=== PATIENT | male | born 1990 | race American Indian/Alaskan Native ===

== ENCOUNTER 2017-02-23 19:59 | Emergency (ER) | payer OTHER ==
[2017-02-23] MEDS ORDERED: Diphtheria,Pertussis(Acell),Tetanus Vaccine 0.5 ML SDV IM ONE (20:18)
[2017-02-23] MEDS ORDERED: Acetaminophen/HYDROcodone 325-5 MG Tab PO ONE (20:18)
--- NOTE | 2017-02-23 20:24 | EDM.PDOC ---
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 He states that his fingernail got bent backwards, and the skin on his finger pad was peeled off. He states that he is otherwise uninjured. The patient does not recall when his last tetanus vaccination was. The patient does not have a PCP. 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 Social & Family History - Tobacco Use Smoking Status *Q: Never Smoker Second Hand Smoke Exposure: No - Caffeine Use Caffeine Use: Reports: Coffee, Soda - Alcohol Use Alcohol Use History: Yes Alcohol Use Frequency: Socially - Recreational Drug Use Recreational Drug Use: No - Living Situation & Occupation Living situation: Reports: Single, Other (with friends) 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[employer]) Review of Systems - Review of Systems Review Of Systems: See Below Constitutional: Reports: No Symptoms Eyes: Reports: No Symptoms Ears: Reports: No Symptoms Nose: Reports: No Symptoms Mouth/Throat: Reports: No Symptoms Respiratory: Reports: No Symptoms Cardiovascular: Reports: No Symptoms GI/Abdominal: Reports: No Symptoms Genitourinary: Reports: No Symptoms Musculoskeletal: Reports: No Symptoms Skin: Reports: No Symptoms Neurological: Reports: No Symptoms Psychiatric: Reports: No Symptoms ED EXAM, GENERAL - Physical Exam Exam: See Below Exam Limited By: No Limitations General Appearance: Alert, WD/WN, No Apparent Distress Extremities: Other (On the volar aspect of the right third distal phalanx, there is an irregular patch of skin removed, measuring approximately 1.5 cm wide by 2.0 cm in length. The entire fingernail has subungual hematoma, however , the nail is still attached at the nailbed. The finger is tender to palpation, but neurovascular status is intact.) Course - Vital Signs Last Recorded V/S: Last Vital Signs Temp 36.1 C 02/23/17 20:02 Pulse 86 02/23/17 20:02 Resp 16 02/23/17 20:02 BP Pulse Ox 98 02/23/17 20:02 - Orders/Labs/Meds Orders: Active Orders 24 hr Category Date Time Status Vaccines to be Administered [RC] PER UNIT ROUTINE Care 02/23/17 20:18 Active Fingers Third Digit Rt F7 [CR] Stat Exams 02/23/17 20:17 Ordered Meds: Medications Discontinued Medications Generic Name Dose Route Start Last Admin Trade Name Freq PRN Reason Stop Dose Admin Hydrocodone Bitart/Acetaminophen 2 tab 02/23/17 20:18 02/23/17 20:31 Deep River 325-5 Mg PO 02/23/17 20:19 2 tab ONETIME ONE Administration Diphtheria/Tetanus/Acell Pertussis 0.5 ml 02/23/17 20:18 02/23/17 20:37 Adacel IM 02/23/17 20:19 0.5 ml .ONCE ONE Administration - Re-Assessments/Exams Free Text/Narrative Re-Assessment/Exam: 02/23/17 20:46 4-view radiographs of the right third finger appear to be unremarkable. No fractures or dislocations identified. Formal read per the Radiologist pending. 02/23/17 20:51 I have asked the patient's nurse to apply a thin film of antibiotic ointment to the finger pad, then dress with Xeroform dressing, followed by gauze. I instructed the patient to change this dressing daily, and that it cannot get wet or dirty. I will have the patient follow-up with Dr. Ochoa. I will have him take ibuprofen for pain, and will additionally prescribe some Deep River. I will write a note for work. The patient received a tetanus vaccination during this ED visit. Departure - Departure Time of Disposition: 20:53 Disposition: Home, Self-Care 01 Condition: Fair Clinical Impression: Finger injury - Discharge Information Prescriptions: Hydrocodone/Acetaminophen [Deep River 5-325 Tablet] 1 - 2 tab PO Q6H PRN #12 tablet PRN Reason: Pain (Severe 7-10) Referrals: PCP,None [Primary Care Provider] - Twan Ochoa MD [Physician] - Forms: ED Department Discharge, ED Return to Work/School Form Additional Instructions: You were seen in the emergency room after your right middle finger got caught in a roller at work. Workup in the ER included x-rays of the finger, which show no broken bones. You were given a tetanus vaccination during your ER visit. Your finger has been dressed with an antibiotic ointment, a nonstick dressing, and gauze. Keep your finger clean with ordinary soap and water. Change your dressing daily. Other than with bathing, your finger cannot get wet or dirty. If it does, change your dressing immediately. Take [id number] ibuprofen, 2 to 3 tablets (400-600 mg) every 8 hours, with food, as needed for discomfort. You may take 1-2 tablets of the narcotic pain reliever Deep River up to every 6 hours , as needed for pain not relieved by ibuprofen. If you take Deep River, do not drive or operate heavy machinery for 10 hours afterwards. Deep River may cause constipation , so consider taking a stool softener. Follow-up with the Orthopedic Surgeon Dr. Ochoa at the next available appointment. If any other problems, please do not hesitate to return to the ER. - My Orders Last 24 Hours: My Active Orders 02/23/17 20:17 Fingers Third Digit Rt F7 [CR] Stat 02/23/17 20:18 Vaccines to be Administered [RC] PER UNIT ROUTINE - Assessment/Plan Last 24 Hours: My Active Orders 02/23/17 20:17 Fingers Third Digit Rt F7 [CR] Stat 02/23/17 20:18 Vaccines to be Administered [RC] PER UNIT ROUTINE
--- NOTE | 2017-02-24 07:14 | CR ---
Right third finger: Four views of the right third finger were obtained. Comparison: No previous study. Joint spaces are maintained. Soft tissue swelling is noted distally. No acute fracture, dislocation or other bony abnormality is seen. Impression: 1. Distal soft tissue swelling. 2. No acute bony abnormality is identified on right third finger study. Diagnostic code #2
== END 2017-02-23 21:18 | disposition home or self-care (01) ==
LOC: JD.ED 19:59
DX: S61.212A Laceration without foreign body of right middle finger without damage to nail, initial encounter (principal); W23.0XXA Caught, crushed, jammed, or pinched between moving objects, initial encounter; Z23 Encounter for immunization
CPT/HCPCS: 73140; 90471; 90715; 99284; A9270; 99283